=== PATIENT | male | born 1995 | race Caucasian/White ===

== ENCOUNTER 2016-07-15 11:51 | Emergency (ER) | payer OTHER ==
[2016-07-15 12:01] VITALS: RESP 16; TEMP 98.8
--- NOTE | 2016-07-15 12:58 | EDPHY ---
H & P Time Seen by Provider: 07/15/16 12:00 HPI/ROS: CHIEF COMPLAINT: Left ankle sprain HISTORY OF PRESENT ILLNESS: 20-year-old male presents emergency department after an inversion ankle sprain. 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 Patient has been unable to bear weight on this ankle since. He denies previous injury to this ankle. No numbness or tingling to his foot, he denies other complaints. Smoking Status: Never smoked Physical Exam: General appearance: alert no distress Left ankle: There is swelling and tenderness over the lateral ankle. TTP to ATFL and CFL. There is no tenderness over the achilles tendon. The foot is non-tender without swelling. No TTP over 5th metatarsal. No proximal fibular tenderness Neurologic exam: The patient has normal sensation and motor function distal to the injury. Vascular exam: Normal pulses and capillary refill in the foot Constitutional: Initial Vital Signs Temperature (C) 37.1 C 07/15/16 11:59 Heart Rate 86 07/15/16 11:59 Respiratory Rate 16 07/15/16 11:59 Blood Pressure 122/68 H 07/15/16 11:59 O2 Sat (%) 94 07/15/16 11:59 O2 Delivery Mode Room Air Allergies/Adverse Reactions: No Known Allergies Allergy (Unverified 07/15/16 12:02) MDM/Departure - MDM Diagnostics: Imaging Impressions Ankle X-Ray 07/15/16 12:03 Impression: Lateral ankle sprain.. Ankle x-ray independently reviewed by me - Depart Disposition: Home, Routine, Self-Care Clinical Impression: Right ankle sprain Qualifiers: Encounter type: initial encounter Involved ligament of ankle: calcaneofibular ligament Qualified Code(s): S93.411A - Sprain of calcaneofibular ligament of right ankle, initial encounter Condition: Good Instructions: Ankle Sprain (ED) Additional Instructions: You have a moderate to severe left lateral ankle sprain. Rest, ice, elevate, take 600mg of ibuprofen every 8 hours with food for 3-5 days as needed for pain and swelling. Wear your walking boot and use crutches without putting any weight on your foot. Return to the emergency department for any numbness, tingling, discoloration of you limb or other concerns. Follow-up with a orthopedist at 1st available appointment at home in [place], call Sunday to schedule this. Referrals: William Duenas MD [Medical Doctor] - As per Instructions (Orthopedist on-call)
[2016-07-15] MEDS ORDERED: IBUPROFEN 600 MG TAB PO ONE (12:59)
[2016-07-15 13:34] VITALS: BP 122/72; PULSE 66; O2SAT 96
== END 2016-07-15 13:33 | disposition home or self-care (01) ==
DX: S93.412A Sprain of calcaneofibular ligament of left ankle, initial encounter (principal); X58.XXXA Exposure to other specified factors, initial encounter; Y99.8 Other external cause status; Y93.02 Activity, running
CPT/HCPCS: L4386